=== PATIENT | male | born 1960 | race Caucasian/White ===

== ENCOUNTER 2025-03-08 00:18 | Emergency (ER) | payer SELFPAY ==
[2025-03-08 00:25] VITALS: BP 148/74; PULSE 76; RESP 25; O2SAT 97; BMI 28.0
[2025-03-08] MEDS: methylPREDNISolone sod succ 125 mg/2 mL INJ IVP (00:30)
[2025-03-08] MEDS: diphenhydrAMINE 50 mg/mL SDV 1mL IVP (00:33)
--- NOTE | 2025-03-08 00:53 | ED_ITS ---
Documented by User: BALTA Ibarra 03/08/25 01:32 HPI - Allergic Reaction General: Chief complaint: Allergic Reaction Stated complaint: SOB Time Seen by Provider: 03/08/25 00:25 Source: patient and family Mode of arrival: ambulatory Limitations: no limitations History of Present Illness: HPI narrative: Patient is a 64-year-old male who presents to ED today along with his significant other for evaluation of tongue swelling. Patient states approximately 4 to 5 hours ago he got bit or stung by something to his right forearm. Patient states he felt fine following this. He states a few hours later he was eating and accidentally bit the left side of his tongue and shortly after began noticing significant tongue swelling. He was not sure if the tongue swelling was secondary to trauma or possibly an anaphylactic reaction thus prompting his emergency visit. No previous history of anaphylaxis. He is not complaining of chest pain, shortness of breath, palpitations, rash, itchiness, abdominal pain, N/V/D, dizziness. He states he is not having any trouble breathing currently. He is occassionally spitting his saliva. MD complaint: allergic reaction (possible) Onset (ago): hour(s) Exposure: insect bite Associated symptoms: Reports other (tongue swelling); Deny abdominal pain, dizziness, hoarseness, nausea or vomiting Severity: severe Treatment prior to arrival: none Previous Allergic Reaction History: none Related Data Previous Rx's ?Medication ?Instructions ?Recorded dexamethasone 6 mg tablet 6 mg PO DAILY 5 days #5 tabs 03/08/25 epinephrine 0.3 mg/0.3 mL 0.3 mg (0.3 mL) IM Q20M PRN 03/08/25 injection, auto-injector (EpiPen anaphylaxis #2 ea 2-Jorge) Allergies Allergy/AdvReac Type Severity Reaction Status Date / Time No Known Allergies Allergy Verified 03/08/25 00:28 Review of Systems Const: Denies: fever(s), chills, body aches, fatigue or malaise Eyes: Denies: change in vision, blurry vision, photophobia, floaters or seeing flashes ENMT: Reports: swelling of lips/tongue; Denies: throat pain, uvular edema, enlarged tonsils, odynophagia, hoarseness, mouth pain, oral sores, nasal discharge, nasal congestion or sinus pain Card: Denies: chest pain, palpitations, edema, lightheadedness, syncope or pre-syncope Resp: Denies: dyspnea GI: Denies: abdominal pain, nausea, vomiting or diarrhea Skin/Breast: Denies: rash, pruritus or erythema Neuro: Denies: dizziness Physical Exam Const: COMMON NORMALS: average body habitus, patient oriented x3, no limitations, healthy appearing, alert and well nourished GENERAL APPEARANCE: cooperative ORIENTATION/CONSCIOUSNESS: Yes awake, Yes oriented to person, Yes oriented to place and Yes oriented to time HENMT: COMMON NORMALS: normocephalic, atraumatic and Normal external nose present HEAD & SCALP: normal to inspection, normocephalic and atraumatic FACE & SINUS: normal facial exam; no edema NOSE: Normal external nose present MOUTH: Normal oral and palatal mucosa present, lip normal and tongue abnormal (significant tongue edema L>R) THROAT: no uvular edema Eye: GENERAL EYE: appearance normal, both eyes and all related structures Neck/C-Spine: COMMON NORMALS: no lymphadenopathy GENERAL: No anterior neck swelling and No submandibular swelling Resp: COMMON NORMALS: normal respiratory effort and clear to auscultation bilaterally AUSCULTATION: clear to auscultation bilaterally Cardio: COMMON NORMALS: regular rate and regular rhythm RATE: regular rate RHYTHM: regular rhythm GI: COMMON NORMALS: Normal to inspection, nondistended, normoactive bowel sounds present, Soft to palpation and non-tender PALPATION: Yes Soft to palpation Extremity: GENERAL: Yes normal exam except as noted Neuro: MAY COMA SCALE: document GCS findings Mandan coma scale eye opening: Spontaneous May coma scale verbal response: Orientated Mandan coma scale motor response: Obey commands May coma scale total score: 15 COMMON NORMALS: patient oriented x3, moves all extremities, no focal motor deficits, no sensory deficits noted and gait normal SENSORIUM/ORIENTATION: Yes alert, Yes oriented to person, Yes oriented to place and Yes oriented to time Skin: COMMON NORMALS: no rashes or lesions noted GENERAL SKIN EXAM: no rashes or lesions noted Course ED course: Patient is continuing to improve. Care transferred to Dr. Castro for continued observation as my shift is ending. ES Vital Signs: Vital signs: Vital Signs Pulse Rate 75 03/08/25 02:56 Respiratory Rate 16 03/08/25 02:56 Blood Pressure 96/53 03/08/25 02:56 Pulse Oximetry 94 03/08/25 02:56 Oxygen Delivery Me thod Room Air 03/08/25 02:56 Discharge Plan Discharge Patient Disposition: Home Clinical Impression: Angioedema Qualifiers: Encounter type: initial encounter Qualified Code(s): T78.3XXA - Angioneurotic edema, initial encounter Condition: Stable Prescriptions: New epinephrine [EpiPen 2-Jorge] 0.3 mg/0.3 mL auto-injector 0.3 mg IM Q20M PRN (Reason: anaphylaxis) Qty: 2 0RF Rx Instructions: for 2 doses dexamethasone 6 mg tablet 6 mg PO DAILY 5 Days Qty: 5 0RF Discharge Orders: Discharge ED (Routine); Ordered 03/08/25 Ordered By: Svetlana Castro Referrals: James Madera FNP [Primary Care Provider, Nurse Practitioner] Patient Instructions: Anaphylaxis (ED), Angioedema (ED), Patient Portal & Mao Instructions Activity Restrictions/Additional Instructions: Thank you for choosing [facility] for your healthcare needs today. You have been screened and evaluated and felt safe for discharge. Health conditions do change or evolve sometimes and as such it is important that you follow up with your Primary Doctor to be re checked, 3-5 days is a general good time frame for follow up. You are always welcome to return to the ED for re assessment if your symptoms are worsening or you have new concerns Print Language: Croatian Coding Level of Care Code ED Associate Professor Of Counseling for Chg Fwd Documented by User: Svetlana Castro MD 03/08/25 02:59 HPI - Allergic Reaction General: Chief complaint: Allergic Reaction Stated complaint: SOB Time Seen by Provider: 03/08/25 00:25 Related Data Previous Rx's ?Medication ?Instructions ?Recorded dexamethasone 6 mg tablet 6 mg PO DAILY 5 days #5 tabs 03/08/25 epinephrine 0.3 mg/0.3 mL 0.3 mg (0.3 mL) IM Q20M PRN 03/08/25 injection, auto-injector (EpiPen anaphylaxis #2 ea 2-Jorge) Allergies Allergy/AdvReac Type Severity Reaction Status Date / Time No Known Allergies Allergy Verified 03/08/25 00:28 Physical Exam Neuro: MAY COMA SCALE: document GCS findings Mandan coma scale total score: 15 Course Vital Signs: Vital signs: Vital Signs Pulse Rate 75 03/08/25 02:56 Respiratory Rate 16 03/08/25 02:56 Blood Pressure 96/53 03/08/25 02:56 Pulse Oximetry 94 03/08/25 02:56 Oxygen Delivery Me thod Room Air 03/08/25 02:56 MDM - Allergic Reaction Medical Decision Making Patient care transitioned me at shift change. He is resolved almost completely. Home with an EpiPen and I am to place him on some steroids for a few days. No radiology studies performed this visit Discharge Plan Discharge Patient Disposition: Home Clinical Impression: Angioedema Qualifiers: Encounter type: initial encounter Qualified Code(s): T78.3XXA - Angioneurotic edema, initial encounter Condition: Stable Prescriptions: New epinephrine [EpiPen 2-Jorge] 0.3 mg/0.3 mL auto-injector 0.3 mg IM Q20M PRN (Reason: anaphylaxis) Qty: 2 0RF Rx Instructions: for 2 doses dexamethasone 6 mg tablet 6 mg PO DAILY 5 Days Qty: 5 0RF Discharge Orders: Discharge ED (Routine); Ordered 03/08/25 Ordered By: Svetlana Castro Referrals: James Madera FNP [Primary Care Provider, Nurse Practitioner] Patient Instructions: Anaphylaxis (ED), Angioedema (ED), Patient Portal & Mao Instructions Activity Restrictions/Additional Instructions: Thank you for choosing [facility] for your healthcare needs today. You have been screened and evaluated and felt safe for discharge. Health conditions do change or evolve sometimes and as such it is important that you follow up with your Primary Doctor to be re checked, 3-5 days is a general good time frame for follow up. You are always welcome to return to the ED for re assessment if your symptoms are worsening or you have new concerns Print Language: Croatian Coding Level of Care Code ED Associate Professor Of Counseling for Emiliano Martínez
--- NOTE | 2025-03-08 01:18 | PC.NURSE ---
provider at bed side states hold epi for now and monitor for further improvement
[2025-03-08 01:28] VITALS: BP 119/64; PULSE 76; RESP 16; O2SAT 94
[2025-03-08 02:00] VITALS: BP 100/50; PULSE 78; RESP 16; O2SAT 94
[2025-03-08 02:56] VITALS: BP 96/53; PULSE 75; RESP 16; O2SAT 94
[2025-03-08 03:11] VITALS: BP 107/50; PULSE 81; RESP 16; O2SAT 99
== END 2025-03-08 03:12 | disposition home or self-care (01) ==
PROVIDERS: Emergency Provider Emergency Medicine; PCP Nurse Practitioner
DX: T78.3XXA Angioneurotic edema, initial encounter (principal); T63.91XA Toxic effect of contact with unspecified venomous animal, accidental (unintentional), initial encounter
CPT/HCPCS: 96372; 96374; 96375; 99284; J0171; J1200; J2919

== ENCOUNTER → 2025-07-06 08:48 | Outpatient (BNVA) | payer MEDICAID, SELFPAY | PROVIDERS: PCP Nurse Practitioner; Visit Provider Podiatrist Foot & Ankle Surgery | DX: M79.672 Pain in left foot (principal); M72.2 Plantar fascial fibromatosis; M19.072 Primary osteoarthritis, left ankle and foot; M20.41 Other hammer toe(s) (acquired), right foot; M20.42 Other hammer toe(s) (acquired), left foot | CPT/HCPCS: 73630; 99204 ==

== ENCOUNTER → 2025-08-03 08:26 | Outpatient (BNVA) | payer MEDICAID, SELFPAY | PROVIDERS: PCP Nurse Practitioner; Visit Provider Podiatrist Foot & Ankle Surgery | DX: M72.2 Plantar fascial fibromatosis (principal); M19.072 Primary osteoarthritis, left ankle and foot; M20.41 Other hammer toe(s) (acquired), right foot; M20.42 Other hammer toe(s) (acquired), left foot; M21.6X1 Other acquired deformities of right foot; M21.6X2 Other acquired deformities of left foot | CPT/HCPCS: 20550; 20551; 99213; J1100; J3301; J9999 ==